=== PATIENT | male | born 1980 ===

== ENCOUNTER 2021-10-07 05:57 | Day surgery (SDC) | payer OTHER ==
[~2021-10-07] VITALS: Ht 182.9 cm; Wt 106.6 kg
[2021-10-07] MEDS ORDERED: ULTRACET PO (10:38)
[2021-10-07] MEDS ORDERED: NEURONTIN600 M1 PO (10:38)
[2021-10-07] MEDS ORDERED: POLY119PG PO (10:39)
== END 2021-10-07 13:10 | disposition home or self-care (01) ==
LOC: CIR.AMB 05:57
PROVIDERS: ATTEND Surgery
DX: K43.0 Incisional hernia with obstruction, without gangrene (principal); Z20.822 Contact with and (suspected) exposure to COVID-19; Z86.16 Personal history of COVID-19